=== PATIENT | male | born 1950 | race Caucasian/White ===

== ENCOUNTER 2021-04-04 16:39 | Inpatient (IN) | payer MEDICAID ==
[2021-04-04] MEDS ORDERED: Bisacodyl 5 MG TAB PO PRN (20:33)
[2021-04-04] MEDS ORDERED: Ondansetron PF 4 MG/2 ML Vial IVP PRN (20:33)
[2021-04-04] MEDS ORDERED: Senokot S 8.6-50 MG TAB PO PRN (20:33)
[2021-04-04] MEDS ORDERED: Acetaminophen 325 MG TAB PO PRN (20:33)
[2021-04-04] MEDS ORDERED: HumaLOG 300 UNITS/3 ML VIAL SC PRN ×2 (20:44)
[2021-04-04] MEDS ORDERED: Dextrose 5% in Water 1,000 ML IV PRN (20:44)
[2021-04-04] MEDS ORDERED: Dextrose 50% Abboject 50 ML SYRINGE SLOW IVP PRN (20:44)
[2021-04-04] MEDS ORDERED: Nitroglycerin 0.4 MG TAB (25 Tab Bottle) SL PRN (20:47)
[2021-04-04] MEDS ORDERED: hydrALAZINE 20 MG/ML VIAL SLOW IVP PRN (20:47)
[2021-04-04] MEDS ORDERED: Enoxaparin Sodium 40 MG/0.4 ML SYRINGE SC SCH (21:02)
[2021-04-04] MEDS: Sodium Chloride 0.9% 1,000 ML IV SCH (21:24)
[2021-04-04 21:35] VITALS: BMI 25.3
[2021-04-04] MEDS ORDERED: Communication Order-Pharmacy FS ONE (21:57)
[2021-04-04] MEDS ORDERED: Enoxaparin Sodium 80 MG/0.8 ML SYRINGE SC SCH (22:15)
[2021-04-04] MEDS ORDERED: Pantoprazole 40 MG VIAL IVP SCH (23:00)
[2021-04-05 06:06] LABS: #Eosinphils 0.2 thou/uL (0.0-0.7); #Lymphocytes 1.5 thou/uL (1.20-3.40); #Monocytes 0.7 thou/uL (0.11-0.59); #Neutrophils 3.9 thou/uL (1.40-6.50); %Basophils 0.4 % (0.0-1.0); %Eosinophils 3.5 % (0.0-10.0); %Lymphocytes 23.3 % (21.0-51.0); %Monocytes 10.9 % (0.0-10.0); %Neutrophils 61.8 % (42.0-75.0); Hemoglobin 14.5 g/dL (14.0-18.0); Mean Corpuscular HGB CONC 33.3 g/dL (32.0-36.0); Mean Corpuscular Hemoglobin 32.6 pg (27.0-31.0); Mean Corpuscular Volume 97.6 fL (78.0-98.0); Mean Platelet Volume 6.9 fL (7.4-10.4); Platelet Count 200 thou/uL (130-400); RBC Distribution Width 11.9 % (11.5-14.5); Red Blood Cell (RBC) Count 4.45 mill/uL (4.70-6.10); White Blood Cell (WBC) Count 6.2 thou/uL (4.8-10.8)
[2021-04-05 06:18] LABS: Hemoglobin A1c 6.8 % (4.0-6.0)
[2021-04-05 06:23] LABS: ALT (SGPT) 10 U/L (8-55); AST (SGOT) 14 U/L (5-34); Albumin 3.5 g/dL (3.4-4.8); Alkaline Phosphatase 50 U/L (40-110); Anion Gap 12 mmol/L (10-20); BUN (Urea Nitrogen) 16 mg/dL (8.4-25.7); Bilirubin, Total 0.7 mg/dL (0.2-1.2); Calc. Creatinine Clearance 95 mL/min (70-130); Calcium 8.7 mg/dL (7.8-10.44); Carbon Dioxide 23 mmol/L (23-31); Chloride 107 mmol/L (98-107); Globulin 2.8 g/dL (2.4-3.5); Glucose 83 mg/dL (80-115); Potassium 3.9 mmol/L (3.5-5.1); Protein, Total 6.3 g/dL (5.8-8.1); Sodium 138 mmol/L (136-145)
[2021-04-05] MEDS ORDERED: Pantoprazole 40 MG VIAL IVP SCH (09:00)
[2021-04-05] MEDS: Lantus 1000 UNITS/10 ML VIAL SC SCH (09:15)
[2021-04-05] MEDS ORDERED: Communication Order-Pharmacy FS SCH (09:32)
[2021-04-05] MEDS ORDERED: ceFAZolin 2 GM/Dextrose 50 ML 2 GM in Premix Bag 1 BAG IVPB SCH (10:45)
[2021-04-05] MEDS ORDERED: Artificial Tear Sol 15 ML BOT EA EYE PRN (13:29)
[2021-04-05] MEDS: Sodium Chloride 0.9% 1,000 ML IV SCH (17:20)
[2021-04-05] MEDS ORDERED: Enoxaparin Sodium 40 MG/0.4 ML SYRINGE SC SCH (21:00)
[2021-04-05] MEDS ORDERED: Gabapentin 100 MG CAP PO SCH (21:00)
[2021-04-06] MEDS ORDERED: Clindamycin/D5W 900 MG in Premix Bag 1 BAG IVPB SCH (04:45)
[2021-04-06] MEDS ORDERED: Fentanyl 250 MCG/5 ML VIAL ONE (07:21)
[2021-04-06] MEDS ORDERED: Midazolam HCl 5 mg/5 ml Vial ONE (07:21)
[2021-04-06] MEDS ORDERED: Dexmedetomidine 200 MCG/2 ML VIAL ONE (07:22)
[2021-04-06] MEDS ORDERED: Levofloxacin 500 mg/D5W 100 ml Premix Bag ONE (07:25)
[2021-04-06] MEDS ORDERED: Albumin 5% 500 ML ONE (07:25)
[2021-04-06] MEDS ORDERED: Lidocaine 1% MPF 2 ML VIAL ONE (07:26)
[2021-04-06] MEDS ORDERED: Clindamycin/D5W 900 mg/50 ml Premix Bag ONE (07:26)
[2021-04-06] MEDS ORDERED: CEFAZOLIN 1 GM VIAL SLOW IVP SCH (08:00)
[2021-04-06] MEDS ORDERED: Lidocaine 1% PF 5 ML VIAL ONE (08:22)
[2021-04-06] MEDS ORDERED: PROPOFOL 200 MG/20 ML VIAL ONE (08:22)
[2021-04-06] MEDS ORDERED: Vecuronium 10 MG VIAL ONE (08:22)
[2021-04-06] MEDS ORDERED: Dexamethasone 20 MG/5 ML VIAL ONE (08:22)
[2021-04-06] MEDS ORDERED: Ondansetron PF 4 MG/2 ML Vial ONE (08:22)
[2021-04-06] MEDS ORDERED: Glycopyrrolate 0.2 MG/ML 5 ML SYRINGE ONE (08:22)
[2021-04-06] MEDS ORDERED: PHENYLEPHRINE-NS 100 MCG/ML 10 ML SYRINGE ONE (08:57)
[2021-04-06] MEDS ORDERED: Insulin Regular 300 UNITS/3 ML VIAL ONE (08:57)
[2021-04-06] MEDS ORDERED: Atenolol 50 MG TAB PO SCH (09:00)
[2021-04-06] MEDS ORDERED: Aspirin 81 mg Enteric Coated Tablet PO SCH (09:00)
[2021-04-06] MEDS ORDERED: Bisacodyl 5 MG TAB PO PRN (12:34)
[2021-04-06] MEDS ORDERED: Ondansetron PF 4 MG/2 ML Vial IVP PRN (12:34)
[2021-04-06] MEDS ORDERED: Nitroglycerin 50 MG/250 ML BOT 250 ML IVPB PRN (12:34)
[2021-04-06] MEDS ORDERED: DOPamine 400 MG/D5W 250 ML 250 ML IVPB PRN (12:34)
[2021-04-06] MEDS ORDERED: hydrALAZINE 20 MG/ML VIAL SLOW IVP PRN (12:34)
[2021-04-06] MEDS ORDERED: Norepinephrine 8 MG/0.9% NS 250 ML IVPB PRN (12:34)
[2021-04-06] MEDS ORDERED: Hetastarch 6% 500 ML 500 ML IVPB PRN (12:34)
[2021-04-06] MEDS ORDERED: Ketorolac Tromethamine 30 MG/ML VIAL IVP SCH (12:34)
[2021-04-06] MEDS ORDERED: Guaifenesin DM 100-10/5 ML UDCUP PO PRN (12:34)
[2021-04-06] MEDS ORDERED: Mag-Al 1200 mg/1200 mg/30 ML UDCUP PO PRN (12:34)
[2021-04-06] MEDS ORDERED: Bisacodyl 10 MG SUPP PR PRN (12:34)
[2021-04-06] MEDS ORDERED: Promethazine HCl 25 MG/ML VIAL IM PRN (12:34)
[2021-04-06] MEDS ORDERED: Potassium Chloride 20 MEQ/100 ML PREMIX BAG IVPB PRN (12:34)
[2021-04-06] MEDS ORDERED: Acetaminophen 325 MG TAB PO PRN (12:34)
[2021-04-06] MEDS ORDERED: Post-Op Insulin Drip Protocol IVPB ONE (12:34)
[2021-04-06] MEDS ORDERED: niCARdipine 25 MG in Sodium Chloride 0.9% 250 ML 250 ML IVPB PRN (12:34)
[2021-04-06 12:50] LABS: #Eosinphils 0.1 thou/uL (0.0-0.7); #Lymphocytes 0.6 thou/uL (1.20-3.40); #Monocytes 0.5 thou/uL (0.11-0.59); #Neutrophils 11.6 thou/uL (1.40-6.50); %Basophils 0.2 % (0.0-1.0); %Eosinophils 0.6 % (0.0-10.0); %Lymphocytes 4.4 % (21.0-51.0); %Monocytes 4.2 % (0.0-10.0); %Neutrophils 90.6 % (42.0-75.0); Hemoglobin 13.1 g/dL (14.0-18.0); Mean Corpuscular HGB CONC 33.7 g/dL (32.0-36.0); Mean Corpuscular Hemoglobin 32.7 pg (27.0-31.0); Platelet Count 143 thou/uL (130-400); RBC Distribution Width 11.8 % (11.5-14.5); Red Blood Cell (RBC) Count 4.02 mill/uL (4.70-6.10); White Blood Cell (WBC) Count 12.8 thou/uL (4.8-10.8)
[2021-04-06 12:57] LABS: Anion Gap 10 mmol/L (10-20); BUN (Urea Nitrogen) 18 mg/dL (8.4-25.7); Calc. Creatinine Clearance 105 mL/min (70-130); Calcium 8.1 mg/dL (7.8-10.44); Carbon Dioxide 23 mmol/L (23-31); Chloride 112 mmol/L (98-107); Glucose 112 mg/dL (80-115); Potassium 4.3 mmol/L (3.5-5.1); Sodium 141 mmol/L (136-145)
[2021-04-06 13:00] LABS: INR-International Normal Ratio 1.4; PTT 40.3 sec (22.9-36.1); Prothrombin Time 17.1 sec (12.0-14.7)
[2021-04-06 13:23] LABS: Actual Bicarbonate (HCO3a) 19.9 mEq/L (22-28); Base Excess (BEa) -5.4 mEq/L (-2.0 to +3.0); CO2 Tension 38.7 mmHg (35.0-45.0); Calcium, Ionized (arterial) 1.22 mmol/L (1.12-1.30); O2 Tension (PaO2), arterial 85.1 mmHg (> 80.0); Puncture Site Arterial Line; pH, Arterial 7.33 (7.35-7.45)
[2021-04-06] MEDS ORDERED: Dextrose 50% Abboject 50 ML SYRINGE SLOW IVP PRN (13:30)
[2021-04-06] MEDS ORDERED: Lantus 1000 UNITS/10 ML VIAL SC PRN (13:30)
[2021-04-06] MEDS ORDERED: HUMULIN R 100 UNITS in Sodium Chloride 0.9% 100 ML IVPB SCH (13:30)
[2021-04-06] MEDS ORDERED: Dextrose 5% in Water 1,000 ML IV PRN (13:30)
[2021-04-06] MEDS: Lactated Ringer's 1,000 ML IV SCH (13:34)
[2021-04-06] MEDS: Fentanyl 100 MCG/2 ML VIAL SLOW IVP PRN ×4 (13:37→20:14)
[2021-04-06] MEDS: Clindamycin/D5W 900 MG in Premix Bag 1 BAG IVPB SCH ×2 (13:42→18:46)
[2021-04-06] MEDS ORDERED: Sodium Chloride 0.9% 500 ML IV SCH (13:45)
[2021-04-06] MEDS: Lantus 1000 UNITS/10 ML VIAL SC SCH (16:27)
[2021-04-06] MEDS: Insulin Regular 300 UNITS/3 ML VIAL SC PRN (17:45)
[2021-04-06] MEDS: Famotidine/PF 20 mg/2ml Vial SLOW IVP SCH (20:15)
[2021-04-06 21:35] LABS: Hemoglobin 11.7 g/dL (14.0-18.0)
[2021-04-06 21:48] LABS: Potassium 4.7 mmol/L (3.5-5.1)
[2021-04-07] MEDS: Insulin Regular 300 UNITS/3 ML VIAL SC PRN ×2 (01:03→20:05)
[2021-04-07 01:24] LABS: Potassium 4.6 mmol/L (3.5-5.1)
[2021-04-07] MEDS: Fentanyl 100 MCG/2 ML VIAL SLOW IVP PRN ×5 (02:33→22:10)
[2021-04-07] MEDS: Clindamycin/D5W 900 MG in Premix Bag 1 BAG IVPB SCH ×2 (02:58→06:38)
[2021-04-07] MEDS: Lactated Ringer's 1,000 ML IV SCH ×2 (03:26→15:46)
[2021-04-07 04:57] LABS: #Lymphocytes 0.9 thou/uL (1.20-3.40); #Monocytes 1.3 thou/uL (0.11-0.59); #Neutrophils 8.8 thou/uL (1.40-6.50); %Eosinophils 0.2 % (0.0-10.0); %Lymphocytes 8.2 % (21.0-51.0); %Monocytes 11.4 % (0.0-10.0); %Neutrophils 80.2 % (42.0-75.0); Hemoglobin 10.6 g/dL (14.0-18.0); Mean Corpuscular HGB CONC 33.6 g/dL (32.0-36.0); Mean Corpuscular Hemoglobin 33.1 pg (27.0-31.0); Mean Corpuscular Volume 98.4 fL (78.0-98.0); Platelet Count 130 thou/uL (130-400); RBC Distribution Width 11.8 % (11.5-14.5); Red Blood Cell (RBC) Count 3.19 mill/uL (4.70-6.10)
[2021-04-07 05:31] LABS: Anion Gap 13 mmol/L (10-20); BUN (Urea Nitrogen) 21 mg/dL (8.4-25.7); Calc. Creatinine Clearance 86 mL/min (70-130); Calcium 8.4 mg/dL (7.8-10.44); Carbon Dioxide 20 mmol/L (23-31); Chloride 111 mmol/L (98-107); Glucose 112 mg/dL (80-115); Potassium 4.4 mmol/L (3.5-5.1); Sodium 140 mmol/L (136-145)
[2021-04-07] MEDS ORDERED: Aspirin 325 MG TAB PO SCH (09:00)
[2021-04-07] MEDS: Famotidine/PF 20 mg/2ml Vial SLOW IVP SCH (10:10)
[2021-04-07] MEDS: HYDROcodone/Acetaminophen 5/325 mg Tablet PO PRN ×2 (15:44→20:01)
[2021-04-07] MEDS ORDERED: diphenhydrAMINE 25 MG CAP PO PRN (19:10)
[2021-04-07] MEDS ORDERED: Nitroglycerin 0.4 MG TAB (25 Tab Bottle) SL PRN (19:10)
[2021-04-07] MEDS ORDERED: Mineral Oil ENEMA PR PRN (19:10)
[2021-04-07] MEDS ORDERED: HUMULIN R 100 UNITS in Sodium Chloride 0.9% 100 ML IVPB SCH (19:30)
[2021-04-07] MEDS ORDERED: Dextrose 5% in Water 1,000 ML IV PRN (19:30)
[2021-04-07] MEDS ORDERED: Dextrose 50% Abboject 50 ML SYRINGE SLOW IVP PRN (19:30)
[2021-04-07] MEDS ORDERED: Lantus 1000 UNITS/10 ML VIAL SC PRN (19:30)
[2021-04-07] MEDS: Atorvastatin Calcium 20 MG TAB PO SCH (20:00)
[2021-04-07] MEDS: Gabapentin 100 MG CAP PO SCH (20:00)
[2021-04-07] MEDS: Lantus 1000 UNITS/10 ML VIAL SC SCH (20:02)
[2021-04-08] MEDS: HYDROcodone/Acetaminophen 5/325 mg Tablet PO PRN ×4 (00:35→20:59)
[2021-04-08 05:23] LABS: #Basophils 0.1 thou/uL (0.0-0.2); #Lymphocytes 1.1 thou/uL (1.20-3.40); #Monocytes 1.1 thou/uL (0.11-0.59); #Neutrophils 7.6 thou/uL (1.40-6.50); %Basophils 0.7 % (0.0-1.0); %Eosinophils 0.3 % (0.0-10.0); %Lymphocytes 10.7 % (21.0-51.0); %Monocytes 11.1 % (0.0-10.0); %Neutrophils 77.2 % (42.0-75.0); Hemoglobin 9.8 g/dL (14.0-18.0); Mean Corpuscular HGB CONC 34.1 g/dL (32.0-36.0); Mean Corpuscular Hemoglobin 33.7 pg (27.0-31.0); Mean Corpuscular Volume 98.9 fL (78.0-98.0); Mean Platelet Volume 7.6 fL (7.4-10.4); Platelet Count 119 thou/uL (130-400); RBC Distribution Width 11.8 % (11.5-14.5); White Blood Cell (WBC) Count 9.9 thou/uL (4.8-10.8)
[2021-04-08 05:25] LABS: Anion Gap 12 mmol/L (10-20); BUN (Urea Nitrogen) 14 mg/dL (8.4-25.7); Calc. Creatinine Clearance 113 mL/min (70-130); Calcium 8.4 mg/dL (7.8-10.44); Carbon Dioxide 24 mmol/L (23-31); Chloride 106 mmol/L (98-107); Glucose 107 mg/dL (80-115); Sodium 138 mmol/L (136-145)
[2021-04-08] MEDS: Potassium Chloride 10 MEQ TAB PO SCH (08:00)
[2021-04-08] MEDS: Pioglitazone HCl 15 MG TAB PO SCH (08:35)
[2021-04-08] MEDS: Aspirin 325 mg Enteric Coated Tablet PO SCH (08:35)
[2021-04-08] MEDS: Furosemide 40 MG TAB PO SCH (08:35)
[2021-04-08] MEDS: Polyethylene Glycol 3350 17 GM Packet PO SCH (08:35)
[2021-04-08] MEDS: Insulin Regular 300 UNITS/3 ML VIAL SC PRN ×2 (12:30→21:01)
[2021-04-08] MEDS: Gabapentin 100 MG CAP PO SCH (20:58)
[2021-04-08] MEDS: Atorvastatin Calcium 20 MG TAB PO SCH (20:58)
[2021-04-08] MEDS: Lantus 1000 UNITS/10 ML VIAL SC SCH (21:01)
[2021-04-09] MEDS: HYDROcodone/Acetaminophen 5/325 mg Tablet PO PRN ×3 (06:39→21:07)
[2021-04-09] MEDS: Insulin Regular 300 UNITS/3 ML VIAL SC PRN ×3 (06:40→17:06)
[2021-04-09 08:51] LABS: Actual Bicarbonate (HCO3a) 24.4 mEq/L (22-28); Analyzer IN Cardio OR; Base Excess (BEa) -0.6 mEq/L (-2.0 to +3.0); CO2 Tension 41.7 mmHg (35.0-45.0); Carboxyhemoglobin (COHb) 0.3 gm% (0.0-3.0); Hemoglobin (Hb) 9.8 g/dL (14.0-18.0); Potassium - ABG Lab 5.27 mmol/L (3.70-5.30); pH, Arterial 7.39 (7.35-7.45)
[2021-04-09 08:51] LABS: Actual Bicarbonate (HCO3a) 21.7 mEq/L (22-28); Analyzer IN Cardio OR; Base Excess (BEa) -2.9 mEq/L (-2.0 to +3.0); CO2 Tension 37.6 mmHg (35.0-45.0); Carboxyhemoglobin (COHb) 0.4 gm% (0.0-3.0); Hemoglobin (Hb) 13.1 g/dL (14.0-18.0); Potassium - ABG Lab 4.08 mmol/L (3.70-5.30); pH, Arterial 7.38 (7.35-7.45)
[2021-04-09 08:51] LABS: Actual Bicarbonate (HCO3a) 22.8 mEq/L (22-28); Analyzer IN Cardio OR; CO2 Tension 35.7 mmHg (35.0-45.0); Calcium, Ionized (arterial) 1.19 mmol/L (1.12-1.30); Carboxyhemoglobin (COHb) 0.7 gm% (0.0-3.0); Hemoglobin (Hb) 14.6 g/dL (14.0-18.0); O2 Tension (PaO2), arterial 355.1 mmHg (> 80.0); Potassium - ABG Lab 3.93 mmol/L (3.70-5.30); pH, Arterial 7.42 (7.35-7.45)
[2021-04-09 08:51] LABS: Actual Bicarbonate (HCO3a) 25.2 mEq/L (22-28); Analyzer IN Cardio OR; Base Excess (BEa) 0.1 mEq/L (-2.0 to +3.0); CO2 Tension 43.1 mmHg (35.0-45.0); Carboxyhemoglobin (COHb) 0.3 gm% (0.0-3.0); O2 Tension (PaO2), arterial 416.5 mmHg (> 80.0); Potassium - ABG Lab 5.23 mmol/L (3.70-5.30); pH, Arterial 7.39 (7.35-7.45)
[2021-04-09 08:52] LABS: Actual Bicarbonate (HCO3a) 22.6 mEq/L (22-28); Analyzer IN Cardio OR; Base Excess (BEa) -0.4 mEq/L (-2.0 to +3.0); CO2 Tension 31.2 mmHg (35.0-45.0); Calcium, Ionized (arterial) 1.32 mmol/L (1.12-1.30); Carboxyhemoglobin (COHb) 0.3 gm% (0.0-3.0); Hemoglobin (Hb) 9.6 g/dL (14.0-18.0); O2 Tension (PaO2), arterial 460.7 mmHg (> 80.0); Potassium - ABG Lab 4.17 mmol/L (3.70-5.30); pH, Arterial 7.48 (7.35-7.45)
[2021-04-09 08:52] LABS: Actual Bicarbonate (HCO3a) 24.5 mEq/L (22-28); Analyzer IN Cardio OR; Base Excess (BEa) -2.6 mEq/L (-2.0 to +3.0); CO2 Tension 52.9 mmHg (35.0-45.0); Calcium, Ionized (arterial) 1.18 mmol/L (1.12-1.30); Carboxyhemoglobin (COHb) 0.5 gm% (0.0-3.0); Hemoglobin (Hb) 11.8 g/dL (14.0-18.0); O2 Tension (PaO2), arterial 111.6 mmHg (> 80.0); Potassium - ABG Lab 3.67 mmol/L (3.70-5.30); pH, Arterial 7.28 (7.35-7.45)
[2021-04-09 08:52] LABS: Puncture Site Arterial Line
[2021-04-09] MEDS: Aspirin 325 mg Enteric Coated Tablet PO SCH (08:52)
[2021-04-09] MEDS: Polyethylene Glycol 3350 17 GM Packet PO SCH (08:52)
[2021-04-09] MEDS: Furosemide 40 MG TAB PO SCH (08:52)
[2021-04-09] MEDS: Potassium Chloride 10 MEQ TAB PO SCH (08:52)
[2021-04-09] MEDS: Pioglitazone HCl 15 MG TAB PO SCH (08:52)
[2021-04-09 08:53] LABS: Puncture Site Arterial Line
[2021-04-09 08:53] LABS: Puncture Site Arterial Line
[2021-04-09 08:54] LABS: Puncture Site Arterial Line
[2021-04-09 08:54] LABS: Puncture Site Arterial Line
[2021-04-09 08:54] LABS: Puncture Site Arterial Line
[2021-04-09] MEDS: Losartan 25 MG TAB PO SCH (10:13)
[2021-04-09] MEDS: Gabapentin 100 MG CAP PO SCH (21:02)
[2021-04-09] MEDS: Atorvastatin Calcium 20 MG TAB PO SCH (21:02)
[2021-04-09] MEDS: Lantus 1000 UNITS/10 ML VIAL SC SCH (21:03)
[2021-04-10] MEDS: Furosemide 40 MG TAB PO SCH (08:46)
[2021-04-10] MEDS: Aspirin 325 mg Enteric Coated Tablet PO SCH (08:46)
[2021-04-10] MEDS: Potassium Chloride 10 MEQ TAB PO SCH (08:46)
[2021-04-10] MEDS: Losartan 25 MG TAB PO SCH (08:47)
[2021-04-10] MEDS: Pioglitazone HCl 15 MG TAB PO SCH (08:48)
[2021-04-10] MEDS: Polyethylene Glycol 3350 17 GM Packet PO SCH (08:48)
[2021-04-10 11:45] VITALS: BP 129/65; TEMP 97.2
== END 2021-04-10 11:47 | disposition home or self-care (01) | DRG 236 ==
LOC: 2NO 19:03 → CCU 04-06 07:55 → 2NO 04-08 09:14
PROVIDERS: ADMIT Internal Medicine; ATTEND Internal Medicine
PROC: 021109W Bypass Coronary Artery, Two Arteries from Aorta with Autologous Venous Tissue, Open Approach (ICD-10-PCS; principal; 2021-04-06)
PROC: 02100Z9 Bypass Coronary Artery, One Artery from Left Internal Mammary, Open Approach (ICD-10-PCS; 2021-04-06)
PROC: 06BQ0ZZ Excision of Left Saphenous Vein, Open Approach (ICD-10-PCS; 2021-04-06)
PROC: 5A1221Z Performance of Cardiac Output, Continuous (ICD-10-PCS; 2021-04-06)
PROC: 02L70CK Occlusion of Left Atrial Appendage with Extraluminal Device, Open Approach (ICD-10-PCS; 2021-04-06)
DX: I25.110 Atherosclerotic heart disease of native coronary artery with unstable angina pectoris (principal); E87.2 Acidosis; Z20.822 Contact with and (suspected) exposure to COVID-19; I44.7 Left bundle-branch block, unspecified; I10 Essential (primary) hypertension; E11.42 Type 2 diabetes mellitus with diabetic polyneuropathy; I08.3 Combined rheumatic disorders of mitral, aortic and tricuspid valves; E78.5 Hyperlipidemia, unspecified; E87.8 Other disorders of electrolyte and fluid balance, not elsewhere classified; R00.1 Bradycardia, unspecified; I25.2 Old myocardial infarction; Z88.5 Allergy status to narcotic agent; Z88.0 Allergy status to penicillin; Z88.8 Allergy status to other drugs, medicaments and biological substances; Z91.018 Allergy to other foods; Z79.899 Other long term (current) drug therapy; Z79.82 Long term (current) use of aspirin; Z79.4 Long term (current) use of insulin; Z79.84 Long term (current) use of oral hypoglycemic drugs; Z98.890 Other specified postprocedural states; Z87.11 Personal history of peptic ulcer disease; Z87.891 Personal history of nicotine dependence; Z83.3 Family history of diabetes mellitus
CPT/HCPCS: 36415; 36416; 36430; 71045; 80048; 80053; 80061; 82805; 83036; 85025; 85610; 85730; 86850; 86900; 86901; 93005; 93010; 93306; 93798; 97139; C1776; C9113; J1100; J1642; J1650; J1815; J1885; J1956; J2250; J2405; J2704; J3010; J3480; J3490; J7050; J7120; P9045; S0028

== ENCOUNTER 2021-12-03 09:35 | Outpatient (CLI) | payer OTHER | END 2021-12-03 09:36 | disposition home or self-care (01) | LOC: BICRAD 09:35 | PROVIDERS: ATTEND Nurse Practitioner Family | DX: M25.511 Pain in right shoulder (principal); R05.9 Cough, unspecified; M19.011 Primary osteoarthritis, right shoulder | CPT/HCPCS: 71046 ==